=== PATIENT | male | born 1950 | race Caucasian/White ===

== ENCOUNTER → 2018-07-14 | Outpatient (CLI) | payer OTHER ==
--- NOTE | 2018-07-14 12:23 | PCVCIMAG ---
EXAM: BILATERAL LOWER EXTREMITY ARTERIAL DUPLEX INDICATION: Peripheral Arterial Disease. Leg pain. FINDINGS: Right Leg: Satisfactory arterial waveforms throughout the common/profunda/superficial femoral, popliteal, anterior tibial, peroneal, and posterior tibial arteries. No flow limiting stenosis seen. Left Leg: Satisfactory arterial waveforms throughout the common/profunda/superficial femoral, popliteal, anterior tibial, peroneal, and posterior tibial arteries. No flow limiting stenosis seen. IMPRESSION: No flow limiting stenosis in the right lower extremity. No flow limiting stenosis in the left lower extremity. LOC:[id number]
== END | disposition home or self-care (01) ==
LOC: PCVCIMAG 13:00
PROVIDERS: ATTEND Internal Medicine Cardiovascular Disease
DX: I73.9 Peripheral vascular disease, unspecified (principal)
CPT/HCPCS: 93925

== ENCOUNTER → 2018-08-17 | Outpatient (CLI) | payer OTHER ==
[~2018-08-17] MED LIST: ASPIRIN 325 MG TABLET ONE; CLOPIDOGREL BISULFATE 75 MG TABLET ONE; DIAZEPAM 10 MG TABLET. ONE; HEPARIN for SUB-Q USE 5,000 UNIT/ML VIAL. SQ ONE; IODIXANOL 270 MG/ML 100 ML VIAL. ONE; IV NORMAL SALINE 1000ML BAG 1,000 ML ONE; LIDOCAINE 1% Multi-Dose 20 ML VIAL. ONE; LIDOCAINE 1%/EPI 1:100,000 20 ML VIAL. ONE; MIDAZOLAM HCL/PF 2 MG/2 ML VIAL. ONE; THROMBIN TOPICAL 5,000 UNIT VIAL. ONE; fentaNYL PF VIAL 100 MCG/2 ML VIAL ONE
--- NOTE | 2018-08-17 18:02 | PCVCINTER ---
EXAM: ULTRASOUND GUIDED THROMBIN INJECTION OF LEFT GROIN PSEUDOANEURYSM INDICATION: Groin pseudoaneurysm following catheterization procedure. PROCEDURE: Procedure and risks of ultrasound guided thrombin injection of the groin pseudoaneurysm were discussed with the patient and consent obtained. Risks included but were not limited to bleeding, infection, vascular thrombosis, allergic reaction, and limb loss. The left groin was prepped and draped in the normal sterile fashion. Under ultrasound guidance I carefully placed a 20 g spinal needle into the center of the pseudoaneurysm cavity and gently instilled the minimal amount of thrombin solution needed to arrest flow in the cavity under direct color-flow imaging. Needle was removed. Normal arterial and venous flow was documented in the common femoral artery and vein, respectively. No immediate complications. FINDINGS: Technically satisfactory ultrasound guided thrombin injection of the groin pseudoaneurysm. No flow in the pseudoaneurysm remains. Good flow in the adjacent [place] femoral artery and vein is present. Distal pulses are stable compared with preprocedure. IMPRESSION: Left groin pseudoaneurysm injection was satisfactory as reviewed above. LOC:[id number]
--- NOTE | 2018-08-17 18:04 | PCVCIMAG ---
EXAM: DUPLEX ULTRASOUND OF THE LEFT GROIN INDICATION: Groin swelling and pain. FINDINGS: There is a small 1.0 x 1.5 cm pseudoaneurysm is seen anterior to the left common femoral artery. Note is made of a 1.3 x 2.6 x 3.2 cm subcutaneous hematoma as well. The common femoral artery and vein are patent. No arteriovenous fistula is seen. IMPRESSION: 1.0 x 1.5 cm pseudoaneurysm left groin as detailed above. LOC:[id number]
--- NOTE | 2018-08-17 18:10 | PCVCINTER ---
EXAM: 1. AORTOGRAM AND BILATERAL LOWER EXTREMITY RUNOFF ANGIOGRAM 2. BILATERAL RENAL ANGIOGRAPHY 3. RIGHT EXTERNAL ILIAC ARTERY STENT PLACEMENT. 4. LEFT EXTERNAL ILIAC ARTERY STENT PLACEMENT. INDICATION: Peripheral arterial disease. Coronary artery disease. Leg pain. Hypertension. Renal atherosclerosis. No prior catheter based angiographic study is available. A full diagnostic angiogram study is performed today and the decision to intervene is based on this diagnostic study. PROCEDURE: Procedure and risks of angiography intervention is appropriate including limb loss stroke and were discussed with the patient's family and consent obtained. The patient's left groin was prepped in the normal sterile fashion. IV conscious sedation was used throughout procedure with appropriate monitoring from 10:30 AM through 11:45 AM. Ultrasound was used to interrogate the left groin and showed the left common femoral artery to be patent. A permanent spot film was obtained. Under ultrasound guidance access into the left common femoral artery was obtained and a 5 [place] sheath was placed. Through this a 5 [place] flush catheter was placed into the abdominal aorta at the level of the renal arteries and AP aortogram was performed. Catheter was positioned at the aortic bifurcation and both oblique views of the pelvis were obtained. Catheter was positioned into the left external iliac artery and left leg runoff angiography was performed. Catheter was exchanged for a visceral catheter was placed into the right renal arteries and right renal angiograms obtained. Catheter was placed into the the left renal arteries and left renal angiograms were obtained. Catheter was advanced to the level of the right external iliac artery and right leg runoff angiography was obtained. Patient was given 4000 units of heparin. A 6 [place] crossover sheath was placed via the left groin to the level of the right common iliac artery. Stent placement across the areas of high-grade stenosis in the right external iliac artery was carried out with a 8 x 80 Smart control stent with subsequent dilatation to 7.0 mm. Stent placement across the areas of high-grade stenosis in the left external iliac artery was carried out with a 8 x 60 Smart control stent with subsequent dilatation to 7.0 mm. Follow-up angiogram was performed. Catheters and wires removed. Sheath was removed and hemostasis obtained using the FISH device. No immediate complications. FINDINGS: Aortogram: There is one right and 2 left renal arteries. Mild plaque infrarenal abdominal aorta without significant stenosis. Note is made of a 90% stenosis at the origin of the inferior mesenteric artery which is a small vessel. Pelvis: The right and left common iliac artery showing good patency. 95% stenosis mid right external iliac artery. Right common femoral profunda femoral arteries are patent. Moderate stenosis proximal/mid left external iliac artery. The left common femoral and profunda femoral arteries are patent. Right renal artery: Minimal plaque proximal vessel does not cause significant stenosis. Left renal artery: There are 2 left renal arteries with the upper renal artery being dominant. Minimal plaque at the origins of these vessels without significant stenosis. Right leg: Scattered plaque superficial femoral artery and popliteal artery without significant stenosis. Mild stenosis proximal anterior tibial artery. Peroneal artery and posterior tibial arteries are patent. Dorsalis pedis and plantar arteries show adequate patency. Left leg: Scattered plaque superficial femoral artery and popliteal artery without significant stenosis. 80% stenosis mid anterior tibial artery. Peroneal artery is small but patent. Posterior tibial artery is also somewhat small without flow-limiting stenosis. The dorsalis pedis and plantar arteries are patent. Right external iliac artery: Following procedure as above vessel shows good patency. Left external iliac artery: Following procedure as above vessel shows good patency. IMPRESSION: Right greater than left external iliac artery stenosis were treated with stent placements with satisfactory patency restored. LOC:[place] [id number]
== END | disposition home or self-care (01) ==
LOC: PCVCINTER 09:48
PROVIDERS: ATTEND Nuclear Medicine Nuclear Cardiology
DX: I70.293 Other atherosclerosis of native arteries of extremities, bilateral legs (principal); I70.1 Atherosclerosis of renal artery; I70.0 Atherosclerosis of aorta; I25.10 Atherosclerotic heart disease of native coronary artery without angina pectoris; I10 Essential (primary) hypertension; I72.8 Aneurysm of other specified arteries; E78.00 Pure hypercholesterolemia, unspecified; I27.20 Pulmonary hypertension, unspecified; I25.2 Old myocardial infarction; F17.210 Nicotine dependence, cigarettes, uncomplicated; Z72.89 Other problems related to lifestyle; Z79.899 Other long term (current) drug therapy
CPT/HCPCS: 36002; 36252; 37221; 75716; 76942; 93926; 99152; 99153; C1725; C1751; C1760; C1769; C1876; C1894; J0690; J1644; J2250; J3010; J3490; J7030; Q9967; 76937

== ENCOUNTER → 2018-08-18 | Outpatient (CLI) | payer OTHER ==
--- NOTE | 2018-08-18 13:38 | PCVCIMAG ---
EXAM: DUPLEX ULTRASOUND OF THE LEFT GROIN INDICATION: Pseudoaneurysm with thrombin injection yesterday. FINDINGS: No pseudoaneurysm is present. The common femoral artery and vein are patent. No arteriovenous fistula is seen. IMPRESSION: Study is negative for pseudoaneurysm. 0.8 x 2.0 x 2.2 cm subcutaneous hematoma left groin is smaller in size than yesterday's study. LOC:[id number]
== END | disposition home or self-care (01) ==
LOC: PCVCIMAG 12:09
PROVIDERS: ATTEND Nuclear Medicine Nuclear Cardiology
DX: I10 Essential (primary) hypertension (principal); I25.10 Atherosclerotic heart disease of native coronary artery without angina pectoris; Z86.79 Personal history of other diseases of the circulatory system
CPT/HCPCS: 93926

== ENCOUNTER → 2018-12-22 | Outpatient (CLI) | payer OTHER ==
--- NOTE | 2018-12-22 12:19 | PCVCIMAG ---
EXAM: BILATERAL CAROTID DUPLEX INDICATION: Carotid Occlusive Disease. FINDINGS: Doppler Measurements (centimeters per second): RIGHT: Peak CCA-91, Peak ECA-93, Diastolic ICA-31, Peak ICA-78, ICA/CCA Ratio-0.9. LEFT: Peak CCA-72, Peak ECA-69, Diastolic ICA-28, Peak ICA-59, ICA/CCA Ratio-0.8. RIGHT CAROTID: The carotid bulb has mild plaque. The proximal internal carotid artery shows <40% stenosis. The common carotid artery shows no significant stenosis. The external carotid artery shows no significant stenosis. LEFT CAROTID: The carotid bulb has mild plaque. The proximal internal carotid artery shows <40% stenosis. The common carotid artery shows no significant stenosis. The external carotid artery shows no significant stenosis. Antegrade flow in both vertebral arteries. IMPRESSION: <40% stenosis of the right internal carotid artery with mild plaque. <40% stenosis of the left internal carotid artery with mild plaque. LOC:[place] [id number]
--- NOTE | 2018-12-22 12:23 | PCVCIMAG ---
EXAM: NONINVASIVE ARTERIAL EXAMINATION OF BOTH LOWER EXTREMITIES INCLUDING PRE AND POST EXERCISE PRESSURE MEASUREMENTS AND DOPPLER WAVEFORMS INDICATION: Peripheral Arterial Disease. Leg pain. FINDINGS: Right Brachial: 128 mm Hg. Right Dorsalis Pedis: 119 mm Hg. Right Posterior Tibial: 120 mm Hg. Right MIRACLE = 0.94. Left Brachial: 119 mm Hg. Left Dorsalis Pedis: 114 mm Hg. Left Posterior Tibial: 135 mm Hg. Left MIRACLE = 1.05. Post Exercise: Right Brachial 151 mm Hg. Right Posterior Tibial: 93 mm Hg. Left Posterior Tibial: 132 mm Hg. Right MIRACLE = 0.62. Left MIRACLE = 0.87. IMPRESSION: No resting ischemia in the right lower extremity. Moderate exercise induced ischemia in the right lower extremity. No resting ischemia in the left lower extremity. No exercise induced ischemia in the left lower extremity. LOC:[id number]
--- NOTE | 2018-12-22 12:24 | PCVCIMAG ---
EXAM: AORTOILIAC DUPLEX INDICATION: Peripheral arterial disease. Previous bilateral external iliac artery stents. FINDINGS: AORTA: Suprarenal aorta measures maximum diameter of 2.5 cm. There is not a fusiform infrarenal aortic aneurysm. The infrarenal aorta measures maximum diameter of 1.8 cm. No aortic stenosis. RIGHT COMMON ILIAC ARTERY: Maximum diameter is 1.2 cm. No significant stenosis. RIGHT EXTERNAL ILIAC ARTERY: No significant stenosis. LEFT COMMON ILIAC ARTERY: Maximum diameter is 1.3 cm. No significant stenosis. LEFT EXTERNAL ILIAC ARTERY: No significant stenosis. IMPRESSION: No abdominal aortic aneurysm. No aortoiliac stenosis seen. Previous bilateral external iliac artery stents maintaining good patency. LOC:[id number]
== END | disposition home or self-care (01) ==
LOC: PCVCIMAG 10:40
PROVIDERS: ATTEND Nuclear Medicine Nuclear Cardiology
DX: I65.23 Occlusion and stenosis of bilateral carotid arteries (principal); I73.9 Peripheral vascular disease, unspecified
CPT/HCPCS: 93880; 93924; 93978

== ENCOUNTER → 2019-06-23 | Outpatient (CLI) | payer OTHER | END | disposition home or self-care (01) | LOC: PCVCCLINIC 16:03 | PROVIDERS: ATTEND Internal Medicine Cardiovascular Disease | DX: I25.10 Atherosclerotic heart disease of native coronary artery without angina pectoris (principal); E78.00 Pure hypercholesterolemia, unspecified; I10 Essential (primary) hypertension; I73.9 Peripheral vascular disease, unspecified; I65.23 Occlusion and stenosis of bilateral carotid arteries; I74.09 Other arterial embolism and thrombosis of abdominal aorta; I25.2 Old myocardial infarction; F17.210 Nicotine dependence, cigarettes, uncomplicated; Z72.89 Other problems related to lifestyle; Z79.82 Long term (current) use of aspirin; Z79.899 Other long term (current) drug therapy | CPT/HCPCS: 36415; 80061; 93005; G0463 ==